=== PATIENT | female | born 1990 | race African-American/Black ===

== ENCOUNTER 2016-06-08 11:07 | Emergency (ER) | payer OTHER ==
[~2016-06-08] VITALS: Ht 170.2 cm; Wt 107.6 kg
[~2016-06-08 11:07] MED LIST: ACYCLOVIR400 MG PO; B-121500 MCG PO; COUMADIN10 MG PO; COUMADIN5 MG PO; CYANOCOBAL1000 MCG/2 IM; Coumadin,Jantoven PO; ENOXAPARIN40 MG/0.4 SC; FEOSOL325 MG PO; FERROUS SULFAT325 MG PO; FLAGYL500 MG PO; FLONASE16 G1 BOTH NARES; FLUTICASONE PRO16 GM BOTH NARES; Feosol PO; HEPARIN SO5000 UNITS SC; IMITREX50 MG PO; IRON325 M1 PO; LOVENOX40 MG/0.4 SC; Lovenox SC; MECLIZINE HCL12.5 M1 PO; MECLIZINE HCL25 MG PO; MOBIC7.5 MG PO; MOTRIN800 MG PO; Motrin PO; NATALCARE RX1 TABLE1 PO; OXYCODONE HCL5 M1 PO; PEN-VEE K,VEET250 MG PO; PEN-VEE K,VEET500 MG PO; PERCOCET 5-3251 EACH PO; PERCOCET 5/31 TABLET PO; PREDNISONE20 MG PO; PROMETHAZINE HC25 M1 PO; TYLENOL EXTRA500 M1 PO; Theragran PO; VICODIN,LORT1 TABLET PO; VITAMIN B-1000 MCG/1 PO; VITAMIN B12-FO1 EACH IM; ZOFRAN ODT4 MG PO; ZYRTEC10 M1 PO; ZYRTEC10 M3 PO
[2016-06-08 14:07] LABS: D-DIMER ELISA 1.06 mg/L FEU (< 0.57)
[2016-06-08 14:18] LABS: TROP-I INTERPRETATION NEGATIVE; TROPONIN-I < 0.01 ng/mL (0.0-0.30)
[2016-06-08 17:38] VITALS: BP 118/77
== END 2016-06-08 17:41 | disposition home or self-care (01) ==
LOC: EME 11:07 → RME 11:07
PROVIDERS: Nurse Practitioner Family
DX: S29.011A Strain of muscle and tendon of front wall of thorax, initial encounter (principal); X50.9XXA Other and unspecified overexertion or strenuous movements or postures, initial encounter; Z86.711 Personal history of pulmonary embolism; R79.1 Abnormal coagulation profile
CPT/HCPCS: 71020; 71275; 84484; 84702; 85379; 93005; 99281; 99283

== ENCOUNTER 2016-08-29 12:59 | Emergency (ER) | payer OTHER ==
[~2016-08-29] VITALS: Ht 170.2 cm; Wt 109.0 kg
[2016-08-29 14:45] LABS: HEMATOCRIT 38.3 % (36.0-46.0); MCH 24.4 PG (29.0-34.0); MCHC 30.5 G/DL (30.0-36.0); MEAN PLAT.VOLUME 13.1 uM^3 (9.5-12.4); PLATELET COUNT 208 K/uL (156-360); RBC DIS.WIDTH-CV 13.2 % (11.8-14.6); RED BLOOD COUNT 4.79 M/uL (3.80-5.20); WHITE BLOOD COUNT 3.5 K/uL (4.1-10.2)
[2016-08-29 14:52] LABS: CHLORIDE 105 mEq/L (99-109); SODIUM 139 mEq/L (136-147)
[2016-08-29 14:54] LABS: D-DIMER ELISA 1.07 mg/L FEU (< 0.57); GLUCOSE 81 mg/dL (70-99)
[2016-08-29 14:56] LABS: ANION GAP 10 MEQ/L (2-14)
[2016-08-29 14:58] LABS: GFR ESTIMATE (CALCULATED) > 59 mL/min/
[2016-08-29 14:59] LABS: UREA NITROGEN (BUN) 7 mg/dL (9-23)
[2016-08-29 15:05] LABS: TROP-I INTERPRETATION NEGATIVE; TROPONIN-I < 0.01 ng/mL (0.0-0.30)
[2016-08-29 15:10] LABS: QUANTITATIVE HCG < 4.0 MIU/ML
[2016-08-29 17:27] LABS: TROP-I INTERPRETATION NEGATIVE; TROPONIN-I < 0.01 ng/mL (0.0-0.30)
[2016-08-29] MEDS ORDERED: NAPROSYN500 MG PO (17:43)
[2016-08-29 17:58] VITALS: BP 136/87
== END 2016-08-29 18:02 | disposition home or self-care (01) ==
LOC: EME 12:59
PROVIDERS: Physician Assistant
DX: R07.89 Other chest pain (principal); Z87.442 Personal history of urinary calculi
CPT/HCPCS: 71020; 71275; 80048; 84484; 84702; 85027; 85379; 93005; 99281; 99285

== ENCOUNTER 2016-12-10 17:20 | Outpatient (CLI) | payer OTHER ==
[~2016-12-10] VITALS: Ht 170.2 cm; Wt 110.2 kg
[~2016-12-10 17:20] MED LIST changes: +NAPROSYN500 MG PO
[2016-12-10] MEDS ORDERED: LOVENOX40 MG/0.4 SC (17:32)
[2016-12-10 17:34] VITALS: BP 119/68
== END 2016-12-10 18:45 | disposition home or self-care (01) ==
LOC: LDRP-OP 17:20 → 2WEST 17:22
DX: O09.892 Supervision of other high risk pregnancies, second trimester (principal); Z86.711 Personal history of pulmonary embolism; Z79.01 Long term (current) use of anticoagulants; Z3A.16 16 weeks gestation of pregnancy
CPT/HCPCS: G0378; J1650

== ENCOUNTER 2017-01-04 01:39 | Emergency (ER) | payer OTHER ==
[~2017-01-04] VITALS: Ht 170.2 cm; Wt 109.3 kg
[2017-01-04 03:20] VITALS: BP 108/65
== END 2017-01-04 03:20 | disposition home or self-care (01) ==
LOC: EME 01:39
PROC: 09C3XZZ Extirpation of Matter from Right External Auditory Canal, External Approach (ICD-10-PCS; principal; 2017-01-04)
DX: T16.1XXA Foreign body in right ear, initial encounter (principal); X58.XXXA Exposure to other specified factors, initial encounter; Z86.711 Personal history of pulmonary embolism; Z79.01 Long term (current) use of anticoagulants
CPT/HCPCS: 99281; 99284

== ENCOUNTER 2017-01-17 10:31 | Outpatient (CLI) | payer OTHER ==
[~2017-01-17] VITALS: Ht 170.2 cm; Wt 110.2 kg
[2017-01-17 10:52] VITALS: BP 100/61
== END 2017-01-17 11:30 | disposition home or self-care (01) ==
LOC: LDRP-OP → 2WEST 10:35 → LDRP-OP 06-20 20:41
DX: O36.8120 Decreased fetal movements, second trimester, not applicable or unspecified (principal); Z86.711 Personal history of pulmonary embolism; Z79.01 Long term (current) use of anticoagulants; O99.012 Anemia complicating pregnancy, second trimester; O99.212 Obesity complicating pregnancy, second trimester; E66.9 Obesity, unspecified; Z3A.21 21 weeks gestation of pregnancy; D57.3 Sickle-cell trait
CPT/HCPCS: 59025; G0378

== ENCOUNTER 2017-02-24 15:27 | Outpatient (CLI) | payer OTHER ==
[~2017-02-24] VITALS: Ht 170.2 cm; Wt 109.5 kg
[2017-02-24 18:47] VITALS: BP 133/69
[2017-02-25 01:01] VITALS: BP 91/53
[2017-02-25 05:06] VITALS: BP 103/63
[2017-02-25 07:20] VITALS: BP 103/55
[2017-02-25 10:57] VITALS: BP 101/59
== END 2017-02-25 13:40 | disposition home or self-care (01) ==
LOC: LDRP-OP 15:27 → EME 15:27 → EDSTATUS 16:28 → 2WEST 16:43
DX: O9A.212 Injury, poisoning and certain other consequences of external causes complicating pregnancy, second trimester (principal); S39.91XA Unspecified injury of abdomen, initial encounter; R51 Headache; O99.112 Other diseases of the blood and blood-forming organs and certain disorders involving the immune mechanism complicating pregnancy, second trimester; D57.3 Sickle-cell trait; D69.6 Thrombocytopenia, unspecified; Z86.711 Personal history of pulmonary embolism; Z79.01 Long term (current) use of anticoagulants; Z3A.27 27 weeks gestation of pregnancy; O9A.312 Physical abuse complicating pregnancy, second trimester
CPT/HCPCS: 59025; 76805; 99281; 99284; G0378; J1650

== ENCOUNTER 2017-04-29 10:26 | Emergency (ER) | payer OTHER ==
[~2017-04-29] VITALS: Ht 170.2 cm; Wt 110.0 kg
[2017-04-29 14:57] VITALS: BP 113/66
== END 2017-04-29 14:58 | disposition home or self-care (01) ==
LOC: EME 10:26
DX: O99.513 Diseases of the respiratory system complicating pregnancy, third trimester (principal); J06.9 Acute upper respiratory infection, unspecified; Z3A.36 36 weeks gestation of pregnancy; O99.343 Other mental disorders complicating pregnancy, third trimester; F32.9 Major depressive disorder, single episode, unspecified; O26.893 Other specified pregnancy related conditions, third trimester; Z87.442 Personal history of urinary calculi; D64.9 Anemia, unspecified; D57.3 Sickle-cell trait; Z86.718 Personal history of other venous thrombosis and embolism; Z79.01 Long term (current) use of anticoagulants
CPT/HCPCS: 71046

== ENCOUNTER 2017-05-15 11:29 | Inpatient (IN) | payer OTHER ==
[2017-02-24 16:48] VITALS: BP 116/62
[~2017-05-15] VITALS: Ht 172.7 cm; Wt 109.7 kg
[2017-05-15] VITALS (13 sets, daily range): BP systolic 109–144; BP diastolic 59–90
[2017-05-15] MEDS ORDERED: HEPARIN SO5000 UNIT3 SC (11:56)
[2017-05-15 12:53] LABS: BASOPHIL (%) 0 % (0-1); EOSINOPHIL (%) 0 % (0-5); HEMATOCRIT 36.2 % (36.0-46.0); HEMOGLOBIN 11.4 G/DL (11.9-15.5); IMMATURE GRANULOCYTE (%) 1.2 % (0.0-0.7); LYMPHOCYTE COUNT 0.8 K/uL (1.0-2.8); MCH 25.1 PG (29.0-34.0); MCHC 31.5 G/DL (30.0-36.0); MCV 79.7 FL (83-99); MONOCYTE COUNT 0.2 K/uL (0-0.8); NEUTROPHIL (%) 75.8 % (45-76); NEUTROPHIL COUNT 3.2 K/uL (1.8-6.4); PLATELET COUNT 87 K/uL (156-360); RBC DIS.WIDTH-CV 13.2 % (11.8-14.6); RBC DIS.WIDTH-SD 37.6 % (39-53); RED BLOOD COUNT 4.54 M/uL (3.80-5.20); WHITE BLOOD COUNT 4.2 K/uL (4.1-10.2)
[2017-05-15 13:15] LABS: ALBUMIN 3.4 G/DL (3.2-4.8); ALKALINE PHOSPHATASE 89 IU/L (3-129); ALT (GPT) 5 IU/L (3-49); AST (GOT) 13 IU/L (2-34); CHLORIDE 103 MEQ/L (99-109); CREATININE 0.6 MG/DL (0.6-1.3); GFR ESTIMATE (CALCULATED) > 59 mL/min/; GLUCOSE 88 mg/dL (70-99); POTASSIUM 3.7 MEQ/L (3.7-5.4); SODIUM 137 MEQ/L (136-147); TOTAL BILIRUBIN 0.5 MG/DL (0.0-1.0); TOTAL PROTEIN 6.6 G/DL (6.4-8.3); UREA NITROGEN (BUN) 4 mg/dL (9-23)
[2017-05-15 16:35] LABS: UR CREATININE CONCENTRATION 31.6 MG/DL
[2017-05-16] VITALS (11 sets, daily range): BP systolic 106–162; BP diastolic 56–92
[2017-05-17 06:15] LABS: MCH 24.9 PG (29.0-34.0); MCHC 31.3 G/DL (30.0-36.0); MCV 79.8 FL (83-99); PLATELET COUNT 83 K/uL (156-360); RBC DIS.WIDTH-CV 13.3 % (11.8-14.6); RBC DIS.WIDTH-SD 38.2 % (39-53); RED BLOOD COUNT 4.01 M/uL (3.80-5.20); WHITE BLOOD COUNT 4.8 K/uL (4.1-10.2)
[2017-05-17 06:16] LABS: BASOPHIL (%) 0.2 % (0-1); EOSINOPHIL (%) 0.6 % (0-5); LYMPHOCYTE (%) 24.6 % (15-42); LYMPHOCYTE COUNT 1.2 K/uL (1.0-2.8); MONOCYTE (%) 5.8 % (3-12); MONOCYTE COUNT 0.3 K/uL (0-0.8); NEUTROPHIL (%) 67.8 % (45-76); NEUTROPHIL COUNT 3.3 K/uL (1.8-6.4)
[2017-05-17 07:09] VITALS: BP 96/57
[2017-05-17] MEDS ORDERED: LOVENOX40 MG/0.4 SC (12:11)
== END 2017-05-17 14:55 | disposition home or self-care (01) | DRG 774 ==
LOC: LDRP-OP → 2WEST 11:30 → LDRP-OP 06-20 12:02
PROVIDERS: Advanced Practice Midwife
PROC: 3E033VJ Introduction of Other Hormone into Peripheral Vein, Percutaneous Approach (ICD-10-PCS; principal; 2017-05-15)
PROC: 10E0XZZ Delivery of Products of Conception, External Approach (ICD-10-PCS; 2017-05-16)
DX: O41.03X0 Oligohydramnios, third trimester, not applicable or unspecified (principal); O99.12 Other diseases of the blood and blood-forming organs and certain disorders involving the immune mechanism complicating childbirth; D69.6 Thrombocytopenia, unspecified; O69.81X0 Labor and delivery complicated by cord around neck, without compression, not applicable or unspecified; O36.5930 Maternal care for other known or suspected poor fetal growth, third trimester, not applicable or unspecified; O99.42 Diseases of the circulatory system complicating childbirth; I27.20 Pulmonary hypertension, unspecified; O99.02 Anemia complicating childbirth; D50.9 Iron deficiency anemia, unspecified; O99.214 Obesity complicating childbirth; E66.9 Obesity, unspecified; Z68.35 Body mass index [BMI] 35.0-35.9, adult; Z3A.38 38 weeks gestation of pregnancy; Z37.0 Single live birth; Z86.711 Personal history of pulmonary embolism
CPT/HCPCS: 80053; 82570; 84156; 85025; 86850; 86900; 86901; 86920; 88307; G0378; J0595; J1650; J7120; Q0169

== ENCOUNTER 2017-07-11 11:45 | Emergency (ER) | payer OTHER ==
[~2017-07-11] VITALS: Ht 172.7 cm; Wt 108.1 kg
[~2017-07-11 11:45] MED LIST changes: +HEPARIN SO5000 UNIT3 SC
[2017-07-11 12:44] LABS: HEMOGLOBIN 11.4 G/DL (11.9-15.5); MCH 25.6 PG (29.0-34.0); MCHC 31.7 G/DL (30.0-36.0); MCV 80.7 FL (83-99); PLATELET COUNT 154 K/uL (156-360); RBC DIS.WIDTH-SD 37.9 % (39-53); RED BLOOD COUNT 4.46 M/uL (3.80-5.20); WHITE BLOOD COUNT 3.2 K/uL (4.1-10.2)
[2017-07-11 12:55] LABS: CHLORIDE 108 mEq/L (99-109); SODIUM 144 mEq/L (136-147)
[2017-07-11 12:56] LABS: GLUCOSE 84 mg/dL (70-99)
[2017-07-11 13:00] LABS: CREATININE 0.8 mg/dL (0.6-1.3); GFR ESTIMATE (CALCULATED) > 59 mL/min/
[2017-07-11 13:01] LABS: UREA NITROGEN (BUN) 7 mg/dL (9-23)
[2017-07-11 13:07] LABS: TROP-I INTERPRETATION NEGATIVE; TROPONIN-I < 0.01 ng/mL (0.0-0.30)
[2017-07-11 13:12] LABS: QUANTITATIVE HCG < 4.0 MIU/ML
[2017-07-11 15:07] VITALS: BP 146/84
== END 2017-07-11 15:10 | disposition home or self-care (01) ==
LOC: EME 11:45
DX: R06.00 Dyspnea, unspecified (principal); R07.9 Chest pain, unspecified; R00.1 Bradycardia, unspecified; R59.0 Localized enlarged lymph nodes; E53.8 Deficiency of other specified B group vitamins; F31.9 Bipolar disorder, unspecified; F32.9 Major depressive disorder, single episode, unspecified; Z86.2 Personal history of diseases of the blood and blood-forming organs and certain disorders involving the immune mechanism; Z86.711 Personal history of pulmonary embolism; Z87.442 Personal history of urinary calculi; Z88.6 Allergy status to analgesic agent; Z88.8 Allergy status to other drugs, medicaments and biological substances
CPT/HCPCS: 71046; 71275; 80048; 84484; 84702; 85027; 93005; 99281; 99285; J7030